=== PATIENT | male | born 1955 | race Caucasian/White ===

== ENCOUNTER 2016-07-04 15:41 | Emergency (ER) | payer OTHER ==
[~2016-07-04] VITALS: Ht 167.6 cm; Wt 60.0 kg
[~2016-07-04 15:41] MED LIST: CHOLPOW PO; FERR325T51 PO; MULT-506 PO; PRAZ1CAP10 PO
[2016-07-04 16:14] VITALS: TEMP 36.7; Ht 167.6 cm; Wt 60.0 kg
--- NOTE | 2016-07-04 17:04 | EMERGENCY ROOM VISIT NOTE ---
History Report prepared by Fadi: Kalyani Harrell Under the Supervision of: Dr. Hero Apple M.D. First contact with patient: 16:39 Chief Complaint: DIZZY Stated Complaint: DIZZY, NAUSEA, CAN'T STAND Nursing Triage Summary: pt c/o dizzy and nausea started at noon today pt took zofran with little relief pt was at [facility] on 07/03 and is being treated dr evans for an inner ear infection History of Present Illness The patient is a 60 year old male who presents to the Emergency Room with complaints of persistent sudden onset dizziness that began around noon today. It is worse with movement of his head and when he changes position; however, it does improve when he is still for a while. The room does not seem to be spinning. When the patient was walking down a hallway earlier today, he felt off balance. He also complains of nausea. He took Zofran with some relief. The patient is currently being treated for an inner ear infection by his PCP. He has been taking Amoxicillin for about 5 days at this point. Denies lightheadedness, vomiting, weakness, tingling, or other complaints. His mother has had several episodes of vertigo but it is related to several medical conditions she has. Source of History: patient Onset: noon today Position: other (global) Quality: other (dizziness) Timing: other (persistent) Modifying Factors (Worsening): other (head movement, positional changes) Associated Symptoms: + nausea, No vomiting, No weakness Review of Systems See HPI for pertinent positives & negatives. A total of 10 systems reviewed and were otherwise negative. Past Medical & Surgical Surgical Problems: (1) History of colectomy Family History Diabetes mellitus Social History Smoking Status: Never Smoker Marital Status: Housing Status: lives with family Occupation Status: employed Current/Historical Medications Scheduled Amoxicillin (Amoxil), 500 MG PO TID Cholecalciferol (Vitamin D3), 1,000 UNITS PO DAILY Cholestyramine (Bulk) (Cholestyramine), 1 PKT PO DAILY Ferrous Sulfate (Kp Ferrous Sulfate), 1 TAB PO DAILY Finasteride (Finasteride), 5 MG PO DAILY Lutein-Zeaxanthin (Lutein), 1 TAB PO DAILY Multivitamin (Multivitamin), 1 TAB PO DAILY Scheduled PRN Meclizine Hcl (Meclizine Hcl), 1 TAB PO TID PRN for Dizziness or Vertigo Ondansetron Hcl (Zofran), 4 MG PO Q6 PRN for Nausea Allergies Coded Allergies: No Known Allergies (Verified , 10/22/15) Physical Exam Vital Signs Date Time Temp Pulse Resp B/P Pulse Ox O2 Delivery O2 Flow Rate FiO2 07/04/16 19:21 78 18 97/75 98 07/04/16 18:04 70 18 133/85 98 Room Air 07/04/16 17:45 97 Room Air 07/04/16 16:14 36.7 73 18 140/87 97 Room Air Physical Exam GENERAL: Patient is a healthy-appearing well-nourished 60 year old male HEAD: Normocephalic atraumatic EYES: Ocular movements intact pupils equal and react to light OROPHARYNX mucous membranes are moist no exudates present no erythema or edema present NECK: Supple no nuchal rigidity CHEST: Good equal expansion LUNGS: Clear and equal to auscultation CARDIAC: Normal S1 and S2 ABDOMEN: Soft nontender no guarding BACK: No CVA tenderness EXTREMITIES: No pain upon palpation normal muscle strength in all groups no clubbing cyanosis or edema NEURO: Patient is following commands is answering questions appropriately. Alert and oriented x3 Cranial Nerves 2-12 grossly intact Medical Decision & Procedures ER Provider Diagnostic Interpretation: Radiology results as stated below per my review and radiologist interpretation: HEAD CT NONCONTRAST CT DOSE: 614.27 mGy.cm HISTORY: Mental status change Stroke TECHNIQUE: Multiaxial CT images of the head were performed without the use of intravenous contrast. Comparison: None. Findings: The paranasal sinuses and mastoid air cells are clear. The calvarium and skull base are intact. The ventricles and sulci are within normal limits. There is no mass, hematoma, midline shift, or acute infarct. Impression: No acute intracranial abnormality. Electronically signed by: Nickolas Ruelas M.D. 07/04/2016 6:02 PM Dictated Date/Time: 07/04/2016 6:01 PM Laboratory Results 07/04/16 16:33 Red Blood Count 4.80, Mean Corpuscular Volume 87.9, Mean Corpuscular Hemoglobin 31.9, Mean Corpuscular Hemoglobin Concent 36.3, Mean Platelet Volume 9.3, Neutrophils (%) (Auto) 79.1, Lymphocytes (%) (Auto) 12.8, Monocytes (%) (Auto) 5.6, Eosinophils (%) (Auto) 1.5, Basophils (%) (Auto) 0.6, Neutrophils # (Auto) 6.33, Lymphocytes # (Auto) 1.02, Monocytes # (Auto) 0.45, Eosinophils # (Auto) 0.12, Basophils # (Auto) 0.05 07/04/16 16:33 Test 07/04/16 16:33 07/04/16 17:21 07/04/16 17:46 White Blood Count 8.00 K/uL (4.8-10.8) Red Blood Count 4.80 M/uL (4.7-6.1) Hemoglobin 15.3 g/dL (14.0-18.0) Hematocrit 42.2 % (42-52) Mean Corpuscular Volume 87.9 fL (80-100) Mean Corpuscular Hemoglobin 31.9 pg (25-34) Mean Corpuscular Hemoglobin Concent 36.3 g/dl (32-36) Platelet Count 244 K/uL (130-400) Mean Platelet Volume 9.3 fL (7.4-10.4) Neutrophils (%) (Auto) 79.1 % Lymphocytes (%) (Auto) 12.8 % Monocytes (%) (Auto) 5.6 % Eosinophils (%) (Auto) 1.5 % Basophils (%) (Auto) 0.6 % Neutrophils # (Auto) 6.33 K/uL (1.4-6.5) Lymphocytes # (Auto) 1.02 K/uL (1.2-3.4) Monocytes # (Auto) 0.45 K/uL (0.11-0.59) Eosinophils # (Auto) 0.12 K/uL (0-0.5) Basophils # (Auto) 0.05 K/uL (0-0.2) RDW Standard Deviation 39.4 fL (36.4-46.3) RDW Coefficient of Variation 12.4 % (11.5-14.5) Immature Granulocyte % (Auto) 0.4 % Immature Granulocyte # (Auto) 0.03 K/uL (0.00-0.02) Prothrombin Time 10.7 SECONDS (9.0-12.0) Prothromb Time International Ratio 1.0 (0.9-1.1) Activated Partial Thromboplast Time 23.3 SECONDS (21.0-31.0) Partial Thromboplastin Ratio 0.9 Anion Gap 9.0 mmol/L (3-11) Est Creatinine Clear Calc Drug Dose 56.9 ml/min Estimated GFR () 76.8 Estimated GFR (Non- 66.3 BUN/Creatinine Ratio 12.5 (10-20) Calcium Level 8.5 mg/dl (8.5-10.1) Total Creatine Kinase 87 U/L (39-308) Creatine Kinase MB 1.4 ng/ml (0.5-3.6) Creatine Kinase MB Ratio 1.6 (0-3.0) Troponin I < 0.015 ng/ml (0-0.045) Bedside Prothrombin Time INR 1.0 (0.9-1.1) Bedside Glucose 98 mg/dl (70-99) Urine Opiates Screen NEG (NEG) Urine Methadone, Qualitative NEG (NEG) Urine Barbiturates NEG (NEG) Urine Phencyclidine (PCP) Level NEG (NEG) Ur Amphetamine/Methamphetamine NEG (NEG) MDMA (Ecstasy) Screen NEG (NEG) Urine Benzodiazepines Screen NEG (NEG) Urine Cocaine Metabolite NEG (NEG) Urine Marijuana (THC) NEG (NEG) Labs reviewed by ED physician. Medications Administered Medications (Trade) Dose Ordered Sig/Quang Route Start Time Stop Time Status Last Admin Dose Admin Sodium Chloride 1,000 ml @ 50 mls/hr Q20H IV 07/04/16 17:12 07/04/16 20:10 DC 07/04/16 17:49 50 MLS/HR Sodium Chloride (Nss 500ml) 500 ml @ 999 mls/hr Q31M STAT IV 07/04/16 17:12 07/04/16 17:42 DC 07/04/16 17:12 999 MLS/HR Meclizine HCl 25 mg 25 mg NOW STAT PO 07/04/16 17:12 07/04/16 17:15 DC 07/04/16 17:47 25 MG Promethazine HCl/ Sodium Chloride (Phenergan Inj/ Nss 50ml) 51 ml @ 204 mls/hr NOW STAT IV 07/04/16 17:12 07/04/16 17:26 DC 07/04/16 17:47 204 MLS/HR ECG Indication: other (dizzy) Rate (beats per minute): 71 Rhythm: normal sinus Findings: no acute ischemic change, no ectopy ED Course 170: The patient was evaluated in room A12A. A complete history and physical examination was performed. 1711: Ordered Promethazine HCl 25 mg/NSS 51 ml @ 204 mls/hr IV, Meclizine Tab 25 mg PO, NSS 500 ml @ 999 mls/hr IV, NSS 1000 ml @ 50 mls/hr IV. 1928: I reassessed the patient. He was feeling better. 1857: I discussed the case with Dr. Elvis HARDY. He said that the patient call the office in the morning and be seen in the office sometime tomorrow. 1904: Upon reexamination the patient is resting comfortably. I discussed results and treatment plan with the patient. He verbalizes agreement and understanding. The patient is ready for discharge. Medical Decision Differential diagnosis: Etiologies such as benign positional vertigo, dehydration, hypovolemia, anemia, tumor, infection, hypoglycemia, electrolyte abnormalities, cardiac sources, intracerebral event, toxicologic, neurologic, as well as others were entertained. 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 The patient suddenly stood up and developed severe dizziness. The dizziness appears to be positionally related and in that respect fatigues after some time. He was sent for a CAT scan of the head which did not show any acute abnormalities. As his symptoms have been ongoing for the longer than 6 hours I would expect a CAT scan to be positive if this were a stroke. He was given IV fluid bolus in the emergency room along with Reglan. Repeat examination revealed much improvement patient's symptoms. I did discuss the case with Dr. Leal who is on-call for ear nose and throat who agreed to see the patient tomorrow in the office. Both patient and are in agreement with the treatment plan. Consults Time Called: 1849 Consulting Physician: Dr. Elvis HARDY Returned Call: 1857 I discussed the case with him. He said that the patient call the office in the morning and be seen in the office sometime tomorrow. Impression Primary Impression: Vertigo Scribe Attestation The scribe's documentation has been prepared under my direction and personally reviewed by me in its entirety. I confirm that the note above accurately reflects all work, treatment, procedures, and medical decision making performed by me. Departure Information Dispostion Home / Self-Care Prescriptions Meclizine Hcl (MECLIZINE HCL) 25 Mg Tab 1 TAB PO TID Y for Dizziness or Vertigo for 10 Days, #30 TAB Prov: Hero Apple MD 07/04/16 Referrals Torito Evans MD (PCP) Patient Instructions ED Vertigo Unspecified, My [facility] Additional Instructions Follow up with DR Blanchard's office tomorrow You have been examined and treated today on an emergency basis only. This is not a substitute for, or an effort to provide, complete comprehensive medical care. It is impossible to recognize and treat all injuries or illnesses in a single emergency department visit. It is therefore important that you follow up closely with Dr Evans. Call as soon as possible for an appointment. Thank you for your time and consideration. I look forward to speaking with you again soon. Please don't hesitate to call us if you have any questions.
[2016-07-04] MEDS ORDERED: CHOL1000 PO (17:07)
[2016-07-04] MEDS ORDERED: FERR1TAB13 PO (17:07)
[2016-07-04] MEDS ORDERED: LUTE15CA PO (17:07)
[2016-07-04] MEDS ORDERED: AMOX500C3 PO (17:07)
[2016-07-04] MEDS ORDERED: ONDA4TAB46 PO (17:07)
[2016-07-04] MEDS ORDERED: PRS5 PO (17:07)
[2016-07-04] MEDS ORDERED: SODIUM CHLORIDE 0.9% 1000ML 1,000 ML IV SCH (17:12)
[2016-07-04] MEDS ORDERED: MECLIZINE HCL 25 MG TAB PO STA (17:12)
[2016-07-04] MEDS ORDERED: PROMETHAZINE HCL INJ 25 MG in SODIUM CHLORIDE 0.9% 50ML 50 ML IV STA (17:12)
[2016-07-04] MEDS ORDERED: SODIUM CHLORIDE 0.9% 500ML 500 ML IV STA (17:12)
[2016-07-04 17:27] LABS: PARTIAL THROMBOPLASTIN RATIO 0.9; PROTHROMBIN TIME (PATIENT) 10.7 SECONDS (9.0-12.0)
[2016-07-04 17:31] LABS: BASO % 0.6 %; BASO ABS # 0.05 K/uL (0-0.2); BLOOD UREA NITROGEN 15 mg/dl (7-18); BUN/CREATININE RATIO 12.5 (10-20); CALCIUM 8.5 mg/dl (8.5-10.1); CARBON DIOXIDE 26 mmol/L (21-32); CHLORIDE 107 mmol/L (98-107); COMPLETE YES; EOS % 1.5 %; GLUCOSE 103 mg/dl (70-99); HEMATOCRIT 42.2 % (42-52); IG% 0.4 %; LYMPH % 12.8 %; LYMPH ABS # 1.02 K/uL (1.2-3.4); MEAN CELL VOLUME 87.9 fL (80-100); MEAN CORPUSCULAR HEMOGLOBIN 31.9 pg (25-34); MEAN CORPUSCULAR HGB CONC 36.3 g/dl (32-36); MEAN PLATELET VOLUME 9.3 fL (7.4-10.4); MONO % 5.6 %; NEUT % 79.1 %; PLATELET COUNT 244 K/uL (130-400); POTASSIUM 3.5 mmol/L (3.5-5.1); SODIUM 142 mmol/L (136-145)
[2016-07-04 17:35] LABS: CKMB/CK RATIO 1.6 (0-3.0)
[2016-07-04 17:45] VITALS: O2SAT 97
--- NOTE | 2016-07-04 18:03 | DIAGNOSTIC IMAGING REPORT ---
HEAD CT NONCONTRAST CT DOSE: 614.27 mGy.cm HISTORY: Mental status change Stroke TECHNIQUE: Multiaxial CT images of the head were performed without the use of intravenous contrast. Comparison: None. Findings: The paranasal sinuses and mastoid air cells are clear. The calvarium and skull base are intact. The ventricles and sulci are within normal limits. There is no mass, hematoma, midline shift, or acute infarct. Impression: No acute intracranial abnormality. Electronically signed by: Nickolas Ruelas M.D. 07/04/2016 6:02 PM Dictated Date/Time: 07/04/2016 6:01 PM
[2016-07-04 18:25] LABS: BENZODIAZEPINE, URINE NEG (NEG); COCAINE,URINE NEG (NEG); PHENCYCLIDINE, URINE NEG (NEG)
[2016-07-04] MEDS ORDERED: MECL1TAB42 PO (19:10)
[2016-07-04 19:21] VITALS: BP 97/75; PULSE 78; O2SAT 98
== END 2016-07-04 19:17 | disposition home or self-care (01) ==
LOC: C.EDB 15:42 → C.EDA 19:17
DX: R42 Dizziness and giddiness (principal); Z79.899 Other long term (current) drug therapy; Z83.3 Family history of diabetes mellitus